=== PATIENT | male | born 1965 | race American Indian/Alaskan Native ===

== ENCOUNTER 2016-11-25 02:38 | Emergency (ER) | payer MEDICARE, OTHER ==
--- NOTE | 2016-11-25 03:04 | Emergency Department Report ---
ED Chest Pain HPI - General Chief Complaint: Chest Pain Stated Complaint: CHEST PAIN Time Seen by Provider: 11/25/16 03:03 Source: patient Mode of arrival: Wheelchair Limitations: No Limitations - History of Present Illness Initial Comments: This is a 51-year-old gentleman complaining of chest pain starting 1 hour prior to arrival he states he was just resting at home and pain began he denies any radiation of the pain feels it substernal. He describes his heart feels like it is racing as well. He states this is exactly how he felt one year ago when he had a heart attack as well. MD Complaint: chest pain Onset/Timin -: hour(s) Onset: during rest Pain Location: substernal Pain Radiation: none Severity scale (0 -10): 10 Quality: tightness, heaviness Consistency: constant Improves With: nothing Worsens With: nothing re: denies: nausea, diaphoresis, dyspnea Other Symptoms: denies: cough, fever Treatments Prior to Arrival: none - Related Data Home Medications Medication Instructions Recorded Confirmed Last Taken Carvedilol [Coreg] 6.25 mg PO BID 12/24/14 11/25/16 11/24/16 Pregabalin [Lyrica] 75 mg PO QDAY 12/24/14 11/25/16 11/24/16 Aspirin 81 mg PO DAILY 11/25/16 11/25/16 11/24/16 AtorvaSTATin [Lipitor] 80 mg PO DAILY 11/25/16 11/25/16 11/24/16 Carvedilol [Coreg] 12.5 mg PO BID 11/25/16 11/25/16 11/24/16 Clopidogrel [Plavix] 75 mg PO QDAY 11/25/16 11/25/16 11/24/16 Gabapentin [Neurontin] 800 mg PO DAILY 11/25/16 11/25/16 11/24/16 Iron 65 mg PO QDAY 11/25/16 11/25/16 11/24/16 Losartan/Hydrochlorothiazide 25 mg PO DAILY 11/25/16 11/25/16 11/24/16 [Losartan-Hctz 50-12.5 mg Tab] Pantoprazole [Protonix] 40 mg PO QDAY 11/25/16 11/25/16 11/24/16 Sertraline [Zoloft] 200 mg PO QDAY 11/25/16 11/25/16 11/24/16 Sitagliptin Phos/Metformin HCl 500 each PO BID 11/25/16 11/25/16 11/24/16 [Janumet 50-500 mg Tablet] Vitamin B-12 65 mg PO DAILY 11/25/16 11/25/16 11/24/16 metFORMIN [Glucophage] 500 mg PO BID 11/25/16 11/25/16 11/24/16 Allergies Allergy/AdvReac Type Severity Reaction Status Date / Time No Known Allergies Allergy Unverified 11/07/14 09:18 SOSA score - Sosa Score Age > 65: (0) No Aspirin use within the Past 7 Days: (0) No 3 or more CAD Risk Factors: (0) No 2 or more Angina events in past 24 hrs: (0) No Known CAD with more than 50% Stenosis: (0) No Elevated Cardiac Markers: (0) No ST Deviation Greater than 0.5mm: (0) No SOSA Score: 0 ED Review of Systems ROS: Stated complaint: CHEST PAIN Other details as noted in HPI Constitutional: denies: chills, fever Eyes: denies: eye pain, eye discharge, vision change ENT: denies: ear pain, throat pain Respiratory: denies: cough, shortness of breath, wheezing Cardiovascular: chest pain. denies: palpitations Endocrine: no symptoms reported Gastrointestinal: denies: abdominal pain, nausea, diarrhea Genitourinary: denies: urgency, dysuria Musculoskeletal: denies: back pain, joint swelling, arthralgia Skin: denies: rash, lesions Neurological: denies: headache, weakness, paresthesias Psychiatric: denies: anxiety, depression Hematological/Lymphatic: denies: easy bleeding, easy bruising ED Past Medical Hx - Past Medical History Previous Medical History?: Yes Hx Hypertension: Yes (2009, Denies CP) Hx Heart Attack/AMI: Yes (Old infarct on EKG) Hx Congestive Heart Failure: Yes (05/2014) Hx Diabetes: Yes (07/2014) Hx GERD: Yes Hx Sickle Cell Disease: No Hx Headaches / Migraines: Yes (migraines) - Surgical History Past Surgical History?: No - Social History Smoking Status: Former Smoker - Medications Home Medications: Home Medications Medication Instructions Recorded Confirmed Last Taken Type Carvedilol [Coreg] 6.25 mg PO BID 03/02/0411/25/16 11/24/16 History Pregabalin [Lyrica] 75 mg PO QDAY 12/24/14 11/25/16 11/24/16 History Aspirin 81 mg PO DAILY 11/25/16 11/25/16 11/24/16 History AtorvaSTATin [Lipitor] 80 mg PO DAILY 11/25/16 11/25/16 11/24/16 History Carvedilol [Coreg] 12.5 mg PO BID 11/25/16 11/25/16 11/24/16 History Clopidogrel [Plavix] 75 mg PO QDAY 11/25/16 11/25/16 11/24/16 History Gabapentin [Neurontin] 800 mg PO DAILY 11/25/16 11/25/16 11/24/16 History Iron 65 mg PO QDAY 11/25/16 11/25/16 11/24/16 History Losartan/Hydrochlorothiazide 25 mg PO DAILY 11/25/16 11/25/16 11/24/16 History [Losartan-Hctz 50-12.5 mg Tab] Pantoprazole [Protonix] 40 mg PO QDAY 11/25/16 11/25/16 11/24/16 History Sertraline [Zoloft] 200 mg PO QDAY 11/25/16 11/25/16 11/24/16 History Sitagliptin Phos/Metformin HCl 500 each PO BID 11/25/16 11/25/16 11/24/16 History [Janumet 50-500 mg Tablet] Vitamin B-12 65 mg PO DAILY 11/25/16 11/25/16 11/24/16 History metFORMIN [Glucophage] 500 mg PO BID 11/25/16 11/25/16 11/24/16 History ED Physical Exam - General Limitations: No Limitations General appearance: in distress, obese, other (somnolent) - Head Head exam: Present: atraumatic, normocephalic - Eye Eye exam: Present: normal appearance, PERRL. Absent: scleral icterus - ENT ENT exam: Present: mucous membranes moist - Neck Neck exam: Present: normal inspection, other (no jvd). Absent: tenderness, lymphadenopathy - Respiratory Respiratory exam: Present: normal lung sounds bilaterally. Absent: respiratory distress, rales - Cardiovascular Cardiovascular Exam: Present: regular rate, tachycardia. Absent: systolic murmur, diastolic murmur, rubs, gallop - GI/Abdominal GI/Abdominal exam: Present: soft, normal bowel sounds. Absent: tenderness - Rectal Rectal exam: Present: deferred - Extremities Exam Extremities exam: Present: normal inspection, other (equal distal pedal pulses bilat). Absent: pedal edema - Back Exam Back exam: Present: normal inspection - Neurological Exam Neurological exam: Present: oriented X3, other (sleepy, slow to answer questions but give appropriate response). Absent: motor sensory deficit ( moving all extremities spontaneously) - Psychiatric Psychiatric exam: Present: normal affect, normal mood - Skin Skin exam: Present: warm, dry, intact, normal color. Absent: rash ED Course Vital Signs 11/25/16 11/25/16 11/25/16 02:52 02:56 03:00 Temperature 98.4 F Pulse Rate 136 H 128 H 127 H Respiratory 24 19 14 Rate Blood Pressure 159/108 139/96 O2 Sat by Pulse 96 99 Oximetry 11/25/16 11/25/16 11/25/16 03:10 03:20 03:32 Temperature Pulse Rate 129 H 118 H 132 H Respiratory 22 22 24 Rate Blood Pressure 144/76 137/86 O2 Sat by Pulse 95 95 95 Oximetry 11/25/16 11/25/16 11/25/16 03:40 03:41 03:50 Temperature Pulse Rate 125 H 109 H Respiratory 21 18 21 Rate Blood Pressure 116/84 122/86 O2 Sat by Pulse 96 98 94 Oximetry 11/25/16 11/25/16 11/25/16 04:00 04:10 04:20 Temperature Pulse Rate 113 H 112 H 113 H Respiratory 31 H 19 28 H Rate Blood Pressure 126/83 131/80 122/88 O2 Sat by Pulse 94 94 94 Oximetry 11/25/16 11/25/16 11/25/16 04:30 04:40 04:50 Temperature Pulse Rate 114 H 111 H 111 H Respiratory 26 H 26 H 22 Rate Blood Pressure 129/87 131/88 119/85 O2 Sat by Pulse 94 93 96 Oximetry - Reevaluation(s) Reevaluation #1: 11/25/16 04:08 The patient demonstrates a fairly odd affect here. He seems very somnolent and minimally conversant however when asked a question he is able to give a response. He does describe ongoing crushing chest pain. In between he is noted to be snoring quite deeply though. This is cycled several times over the last 10 or 15 minutes. Per the initial ECG there was significant concern for possible SVT. The rate was not as fast as I would expect for a typical SVT but the patient did indicate that he had similar prior prior previously and required medication and get him to convert to a normal rhythm. For this reason I did attempt to cardioversion with adenosine. This was done 6 mg and 12 and 12 without any significant change in the heart rate. On the third attempt the heart rate did drop from the 130s to 105- 110 range and then went back up to the 130s repeat ECG does demonstrate this looks more like a sinus tachycardia however. This makes sense given his limited response to adenosine. I suspect this is more a pain response. Reevaluation #2: 11/25/16 07:01 I did have an interview with the patient's significant other. She indicates the patient appeared to be very stressed out state last night at the time of his pain onset. She is very suspicious of this being more of an anxiety presentation. This may be possible but still cardiac etiology and other bad etiologies are diagnosis to prove first with anxiety being more of a diagnosis of exclusion. CT chest was done due to history of blood clots described previously. This was ultimately noted to be a negative study. There was a small 3 mm nodule noted but again was otherwise noted to be an unremarkable study. Repeat troponin is pending at this time as would be a 4 hour troponin level. I feel very comfortable that if this level is negative that the patient is safe for home. In retrospect this is been somewhat of a dramatic presentation with us giving a tenderness and upon initial arrival here to ultimately discharging to home. Retrospect as well though it does fit with the idea of anxiety with tachycardia being related to that rather than to some intrinsic problem patient comfortable going home will be with significant other today. ED Medical Decision Making - Lab Data Result diagrams: 11/25/16 03:35 11/25/16 03:35 - EKG Data 11/25/16 03:24 2 ECGs. First ECG at O2 43 demonstrates supraventricular tachycardia at a rate of 134 left axis deviation is noted no acute ST segment elevation consistent with STEMI noted there is Significant nonspecific ST changes throughout. ECG # 2 at time 03 16 demonstrate a sinus tachycardia at 122 bpm with a normal [place] left axis deviation is still noted QRS duration is ice demonstrates 106 inconsistent with intraventricular conduction delay there is some Q waves inferiorly as well as some nonspecific findings again not consistent with STEMI morphology of the QRS complexes essentially the same of the initial ECG doesn't need to suspect initial ECG is likely more more likely a sinus tachycardia as well. - Radiology Data interpreted by me: Cardiomegaly noted with mild right hilar fullness. This is compared to x-ray from one year ago with limited change in the right hilar appearance. No other acute process noted. Critical care attestation.: If time is entered above; I have spent that time in minutes in the direct care of this critically ill patient, excluding procedure time. ED Disposition Clinical Impression: Chest pain, non-cardiac, Hyperglycemia Disposition: DISCHARGED TO HOME OR SELFCARE Is pt being admited?: No Does the pt Need Aspirin: No Condition: Stable Instructions: Chest Pain (ED) Additional Instructions: Return if you have any worsening symptoms. Rest today. Follow an ADA diet. Check your sugars regularly. If they are remaining persistently high then you may require some type of additional diabetic medication.
[2016-11-25] MEDS ORDERED: NITRO-BID 2% TP ONE (03:20)
[2016-11-25] MEDS ORDERED: BABY ASPIRIN PO ONE (03:20)
[2016-11-25] MEDS ORDERED: NITROSTAT SL ONE (03:20)
[2016-11-25] MEDS ORDERED: MORPHINE IV ONE (03:20)
[2016-11-25 03:51] LABS: Basophils % (Auto) 0.2 % (0.0-1.8); Eosinophils % (Auto) 0.1 % (0.0-4.3); Hematocrit 36.5 % (35.5-45.6); Hemoglobin 12.2 gm/dl (11.8-15.2); Mean Corpuscular HGB Conc 34 % (32-34); Mean Corpuscular Hemoglobin 30 pg (28-32); Mean Corpuscular Volume 89 fl (84-94); Platelet Count 206 K/mm3 (140-440); Red Blood Count 4.08 M/mm3 (3.65-5.03); Red Cell Distribution Width 15.5 % (13.2-15.2); White Blood Count 4.6 K/mm3 (4.5-11.0)
[2016-11-25 04:04] LABS: Blood Urea Nitrogen 13 mg/dL (9-20); Calcium 8.8 mg/dL (8.4-10.2); Carbon Dioxide 24 mmol/L (22-30); Chloride 85.7 mmol/L (98-107); Potassium 3.4 mmol/L (3.6-5.0); Sodium 128 mmol/L (137-145)
[2016-11-25 04:10] LABS: Anion Gap 22 mmol/L
[2016-11-25 04:11] LABS: Glucose 503 mg/dL (75-100)
[2016-11-25] MEDS ORDERED: NACL 0.9% 1000 ML IV ONE (04:15)
--- NOTE | 2016-11-25 05:38 | Cat Scan Report ---
FINAL REPORT EXAM: CT ANGIO CHEST HISTORY: CP- PE protocol TECHNIQUE: CTA chest with IV contrast. MIP and MPR images. PRIORS: None FINDINGS: There is an aberrant right subclavian artery. No thoracic aortic aneurysm or dissection seen. No pathologically enlarged lymph nodes seen. Visualized portions of the upper abdomen show no significant abnormality. Suboptimal opacification of the pulmonary arteries. No obvious embolism. 3.6 mm nodule in left upper lobe on image 21. No acute lung consolidation. No pleural effusion or pneumothorax. IMPRESSION: 1. No acute finding. Suboptimal opacification of the pulmonary arteries. No obvious embolism. 2. Left upper lobe nodule. Followup for lung nodules of this size is as follows, in general: If this patient is low risk (no significant smoking history, no history of malignancy, and normal immune system), nodules less than 4 mm in size need no followup. If the patient is high risk (history of smoking or other known risk factors), followup in 12 [address] If there is no change at that time, no additional followup is necessary.
[2016-11-25 08:03] VITALS: BP 121/80
--- NOTE | 2016-11-25 09:18 | XRay Report ---
PORTABLE CHEST INDICATION: Chest pain. COMPARISON: 01/01/2015 FINDINGS: Portable, frontal chest radiographs, 2 images, demonstrate patient rotation to the left with grossly stable cardiomediastinal silhouette. Clear lungs. EKG leads. Stable bones. CONCLUSION: No acute disease or significant interval change, as described. Thank you for the opportunity to participate in this patient's care.
== END 2016-11-25 08:04 | disposition home or self-care (01) ==
LOC: ED 02:38
DX: R07.2 Precordial pain (principal); E11.65 Type 2 diabetes mellitus with hyperglycemia; I10 Essential (primary) hypertension; I25.2 Old myocardial infarction; I50.9 Heart failure, unspecified; K21.9 Gastro-esophageal reflux disease without esophagitis; G43.909 Migraine, unspecified, not intractable, without status migrainosus; Z79.82 Long term (current) use of aspirin; Z87.891 Personal history of nicotine dependence
CPT/HCPCS: 36415; 71010; 71275; 80048; 82962; 84484; 85025; 93005; 93010; 96361; 96372; 96374; 96375; 99285; J0153; J2270; J7030; Q9967; J1815